=== PATIENT | male | born 2000 | race Asian ===

== ENCOUNTER 2023-05-17 15:06 | Outpatient (CLI) | payer BC ==
[2023-05-17 16:06] LABS: Hematocrit 45.1 % (38.8-50.0); Hemoglobin 15.1 g/dL (13.5-17.5); Mean Corpuscular HGB CONC 33.5 g/dL (32.0-36.0); Mean Corpuscular Hemoglobin 29.2 pg (27.0-33.0); Mean Corpuscular Volume 87.2 fl (81.2-95.1); Mean Platelet Volume 10.7 fl (7.4-10.4); Platelet Count 265 10x3/uL (150-450); RBC Distribution Width 12.7 % (11.5-14.5); Red Blood Cell (RBC) Count 5.17 10x6/uL (4.32-5.72)
[2023-05-17 16:30] LABS: PTT 27.9 sec (22.0-33.0); Prothrombin Time 10.4 sec (9.5-12.1)
== END 2023-05-17 15:07 | disposition home or self-care (01) ==
LOC: LABBT 15:06
PROVIDERS: ATTEND Neurological Surgery
DX: Z01.812 Encounter for preprocedural laboratory examination (principal); M51.26 Other intervertebral disc displacement, lumbar region; M48.061 Spinal stenosis, lumbar region without neurogenic claudication
CPT/HCPCS: 85027; 85610; 85730

== ENCOUNTER 2023-05-20 05:38 | Observation (INO) | payer BC ==
[2023-05-17 16:44] VITALS: BMI 32.1
[2023-05-20] MEDS ORDERED: EPINEPHrine 1 MG/ML VIAL ONE (06:11)
[2023-05-20] MEDS ORDERED: Thrombin 5000 UNITS/5 ML VIAL ONE (06:11)
[2023-05-20] MEDS ORDERED: Bupivacaine PF 0.5% 30 ML VIAL ONE (06:11)
[2023-05-20] MEDS ORDERED: Vancomycin 1 GM VIAL ONE (06:11)
[2023-05-20] MEDS ORDERED: CEFAZOLIN 2 GM VIAL ONE (06:38)
[2023-05-20] MEDS ORDERED: Sodium Chloride 0.9% 100 ML ONE (06:38)
[2023-05-20] MEDS ORDERED: fentaNYL PF 100 MCG/2 ML SYRINGE ONE ×2 (06:39→09:35)
[2023-05-20] MEDS ORDERED: Dexmedetomidine 200 MCG/2 ML VIAL ONE (06:39)
[2023-05-20] MEDS ORDERED: Magnesium 5 GM/10 ML VIAL ONE (06:40)
[2023-05-20] MEDS ORDERED: HYDROmorphone 2 MG/ML VIAL ONE (06:52)
[2023-05-20] MEDS ORDERED: Ondansetron PF 4 MG/2 ML Vial ONE ×2 (06:59→15:07)
[2023-05-20] MEDS ORDERED: Rocuronium Bromide 10 MG/ML (10ML VIAL) ONE (06:59)
[2023-05-20] MEDS ORDERED: PHENYLEPHRINE-NS 100 MCG/ML 10 ML SYRINGE ONE (06:59)
[2023-05-20] MEDS ORDERED: Dexamethasone 20 MG/5 ML VIAL ONE (06:59)
[2023-05-20] MEDS ORDERED: Lidocaine 1% PF 5 ML VIAL ONE (06:59)
[2023-05-20] MEDS ORDERED: PROPOFOL 200 MG/20 ML VIAL ONE (06:59)
[2023-05-20] MEDS ORDERED: SUGAMMADEX SODIUM 200 MG/2 ML VIAL ONE (08:49)
[2023-05-20] MEDS ORDERED: Tamsulosin HCl 0.4 MG CAP ONE (09:43)
[2023-05-20] MEDS ORDERED: fentaNYL 50 mcg/mL 1 mL Vial ONE (10:16)
[2023-05-20] MEDS ORDERED: HYDROcodone/Acetaminophen 5/325 mg Tablet ONE ×2 (10:52→14:36)
[2023-05-20] MEDS ORDERED: Morphine 2 MG/ML VIAL ONE (12:41)
[2023-05-20] MEDS ORDERED: Scopolamine 1 mg/72 hour Patch ONE (15:26)
[2023-05-20 16:28] LABS: #Eosinphils 0.4 thou/uL (0.0-0.7); #Monocytes 0.7 thou/uL (0.11-0.59); #Neutrophils 8.2 thou/uL (1.40-6.50); %Basophils 0.4 % (0.0-1.0); %Eosinophils 3.3 % (0.0-10.0); %Lymphocytes 11.5 % (21.0-51.0); %Monocytes 6.3 % (0.0-10.0); %Neutrophils 78.2 % (42.0-75.0); Hemoglobin 13.8 g/dL (14.0-18.0); Mean Corpuscular HGB CONC 33.7 g/dL (32.0-36.0); Mean Corpuscular Hemoglobin 29.3 pg (27.0-31.0); Mean Platelet Volume 10.5 fL (7.4-10.4); Platelet Count 210 10x3/uL (130-400); RBC Distribution Width 12.6 % (11.5-14.5); Red Blood Cell (RBC) Count 4.71 mill/uL (4.70-6.10); White Blood Cell (WBC) Count 10.5 10x3/uL (4.8-10.8)
[2023-05-20 16:51] LABS: Anion Gap 11 mmol/L (10-20); BUN (Urea Nitrogen) 10 mg/dL (8.9-20.6); Calc. Creatinine Clearance 187 mL/min (70-130); Calcium 8.7 mg/dL (7.8-10.44); Carbon Dioxide 23 mmol/L (22-29); Chloride 104 mmol/L (98-107); Estimated GFR 127; Glucose 103 mg/dL (70-105); Sodium 134 mmol/L (136-145)
[2023-05-20] MEDS ORDERED: Ondansetron PF 4 MG/2 ML Vial IVP PRN (17:47)
[2023-05-20] MEDS ORDERED: Prochlorperazine 10 MG/2 ML VIAL IM PRN (17:47)
[2023-05-20] MEDS ORDERED: Mag-Al 1200 mg/1200 mg/30 ML UDCUP PO PRN (17:47)
[2023-05-20] MEDS: CEFAZOLIN 2 GM in Sodium Chloride 0.9% 100 ML IVPB SCH (20:41)
[2023-05-21] MEDS: Sodium Chloride 0.9% 1,000 ML IV SCH ×2 (01:37→09:07)
[2023-05-21] MEDS: Ibuprofen 200 MG TAB PO PRN ×2 (01:41→08:54)
[2023-05-21 04:05] LABS: #Eosinphils 0.1 thou/uL (0.0-0.7); #Monocytes 0.8 thou/uL (0.11-0.59); #Neutrophils 6.7 thou/uL (1.40-6.50); %Basophils 0.2 % (0.0-1.0); %Eosinophils 1.3 % (0.0-10.0); %Lymphocytes 16.2 % (21.0-51.0); %Monocytes 8.5 % (0.0-10.0); %Neutrophils 73.5 % (42.0-75.0); Hemoglobin 13.4 g/dL (14.0-18.0); Mean Corpuscular HGB CONC 33.5 g/dL (32.0-36.0); Mean Corpuscular Volume 86.6 fl (78.0-98.0); Mean Platelet Volume 10.6 fL (7.4-10.4); Platelet Count 212 10x3/uL (130-400); RBC Distribution Width 12.6 % (11.5-14.5); Red Blood Cell (RBC) Count 4.62 mill/uL (4.70-6.10); White Blood Cell (WBC) Count 9.2 10x3/uL (4.8-10.8)
[2023-05-21 04:35] LABS: Anion Gap 11 mmol/L (10-20); BUN (Urea Nitrogen) 8 mg/dL (8.9-20.6); Calc. Creatinine Clearance 174 mL/min (70-130); Calcium 8.8 mg/dL (7.8-10.44); Carbon Dioxide 25 mmol/L (22-29); Chloride 107 mmol/L (98-107); Estimated GFR 124; Glucose 115 mg/dL (70-105); Magnesium 2.1 mg/dL (1.6-2.6); Potassium 3.7 mmol/L (3.5-5.1); Sodium 139 mmol/L (136-145)
[2023-05-21] MEDS: CEFAZOLIN 2 GM in Sodium Chloride 0.9% 100 ML IVPB SCH (05:28)
[2023-05-21] MEDS ORDERED: FLU VACC QS2023-24(6MOS UP)/PF 60 MCG/0.5 ML SYRINGE IM ONE (09:00)
[2023-05-21] MEDS: Acetaminophen/Codeine 30-300mg Tablet PO PRN ×2 (09:06→14:49)
[2023-05-21 12:09] VITALS: BP 105/52; TEMP 98.5
== END 2023-05-21 16:12 | disposition home or self-care (01) ==
LOC: SDC 05:38 → SURG A 17:47 → 2NO 20:08
PROVIDERS: ADMIT Neurological Surgery; ATTEND Neurological Surgery
PROC: 01NB0ZZ Release Lumbar Nerve, Open Approach (ICD-10-PCS; principal; 2023-05-20)
DX: M48.062 Spinal stenosis, lumbar region with neurogenic claudication (principal); M51.16 Intervertebral disc disorders with radiculopathy, lumbar region; J45.20 Mild intermittent asthma, uncomplicated; I08.8 Other rheumatic multiple valve diseases; R55 Syncope and collapse; Z91.018 Allergy to other foods
CPT/HCPCS: 36415; 36416; 80048; 83735; 84443; 85025; 93306; J0171; J1100; J1170; J2272; J2405; J2704; J3010; J3370; J3475; J3490; S0020